=== PATIENT | male | born 1990 | race Caucasian/White ===

== ENCOUNTER 2017-08-19 05:29 | Inpatient (IN) | payer OTHER ==
[2017-08-19] MEDS: ONDANSETRON 4 MG INJ IV ×3 (06:28→21:07)
[2017-08-19] MEDS: HYDROmorphONE 1 MG/5 ML IV SYRINGE IV ×2 (06:29→07:15)
[2017-08-19] MEDS: SOD CHLORIDE 0.9% 1,000 ML IV ×3 (06:29→21:58)
[2017-08-19 06:40] LABS: ADD MAN DIFF? NO
[2017-08-19 06:46] LABS: BASOPHILS % 0.2 % (0.0-2.0); EOSINOPHILS # 0.1 10^3/ul (0.0-0.5); EOSINOPHILS % 0.5 % (0.0-7.0); HEMATOCRIT 42.9 % (42.0-52.0); HEMOGLOBIN 15.6 g/dl (14.0-18.0); LYMPHOCYTES # 1.5 10^3/ul (0.8-2.9); MEAN CORPUSCULAR HEMOGLOBIN 29.8 pg (29.0-33.0); MEAN CORPUSCULAR HGB CONC 36.4 g/dl (32.0-37.0); MEAN CORPUSCULAR VOLUME 81.9 fl (82.0-101.0); MEAN PLATELET VOLUME 9.8 fl (7.4-10.4); MONOCYTES % 7.4 % (0.0-11.0); NEUTROPHIL # 10.7 10^3/ul (1.6-7.5); NEUTROPHILS % 80.6 % (39.0-77.0); PLATELET COUNT 197 10^3/UL (140-415); RED BLOOD COUNT 5.24 10^6/ul (4.70-6.10); RED CELL DISTRIBUTION WIDTH 11.9 % (11.5-14.5)
[2017-08-19 06:46] LABS: WHITE BLOOD COUNT 13.3 10^3/ul (4.8-10.8)
[2017-08-19 06:47] LABS: ADD UMIC NO; UR ASCORBIC ACID NEGATIVE (NEGATIVE); UR BILIRUBIN (Dip) NEGATIVE (NEGATIVE); UR BLOOD (Dip) NEGATIVE (NEGATIVE); UR CLARITY CLEAR (CLEAR); UR COLOR YELLOW (YELLOW); UR GLUCOSE (Dip) NEGATIVE (NEGATIVE); UR KETONES (Dip) NEGATIVE (NEGATIVE); UR LEUKOCYTE ESTERASE (Dip) NEGATIVE Leu/ul (NEGATIVE); UR NITRITE (Dip) NEGATIVE (NEGATIVE); UR SPECIFIC GRAVITY (Dip) 1.023 (1.003-1.030); UR TOTAL PROTEIN (Dip) NEGATIVE (NEGATIVE); UR UROBILINOGEN (Dip) NEGATIVE (NEGATIVE)
[2017-08-19 07:03] LABS: ALANINE AMINOTRANSFERASE 25 IU/L (13-69); ALBUMIN 4.3 g/dl (3.3-4.9); ALBUMIN/GLOBULIN RATIO 1.38; ALKALINE PHOSPHATASE 56 IU/L (42-121); ANION GAP 16 (8-16); ASPARTATE AMINO TRANSFERASE 20 IU/L (15-46); BLOOD UREA NITROGEN 13 mg/dl (7-20); CARBON DIOXIDE 28 mmol/L (21-31); CHLORIDE 106 mmol/L (97-110); CREATININE 1.04 mg/dl (0.61-1.24); GLUCOSE 108 mg/dl (70-220); LIPASE 46 U/L (23-300); POTASSIUM 3.8 mmol/L (3.5-5.1); SODIUM 146 mmol/L (135-144); TOTAL PROTEIN 7.4 g/dl (6.1-8.1)
[2017-08-19 07:09] LABS: BILIRUBIN,INDIRECT 0.5 mg/dl (0-1.1); BILIRUBIN,TOTAL 0.5 mg/dl (0.2-1.3)
[2017-08-19] MEDS: AMPICILLIN/SULB 3 GM/NS (PMX) 100 ML IVPB (07:19)
[2017-08-19] MEDS ORDERED: ACETAMINOPHEN 325 MG TAB PO ×2 (08:30→09:30)
[2017-08-19] MEDS ORDERED: ONDANSETRON 4 MG INJ IV (08:30)
[2017-08-19] MEDS ORDERED: BISACODYL 10 MG SUPP PR (09:30)
[2017-08-19] MEDS ORDERED: DOCUSATE SODIUM 100 MG CAP PO (09:30)
[2017-08-19] MEDS ORDERED: MAGNESIUM HYDROXIDE 30ML CUP PO (09:30)
[2017-08-19] MEDS ORDERED: ACETAMINOPHEN 650 MG SUPP PR (09:30)
[2017-08-19] MEDS ORDERED: NACL 0.9% 3 ML SYG IV (09:30)
[2017-08-19] MEDS: morphine 2 MG INJ IV (09:38)
[2017-08-19] MEDS: AMPICILLIN/SULB 1.5GM/NS (PMX) 50 ML IVPB ×2 (11:55→18:00)
[2017-08-19 17:38] LABS: INR 0.99; PROTIME 13.2 Sec (11.9-14.9)
[2017-08-19] MEDS ORDERED: FENTAnyl 50 MCG/ML VIAL (19:33)
[2017-08-19] MEDS ORDERED: ROCURONIUM 50 MG INJ (19:33)
[2017-08-19] MEDS ORDERED: PROPOFOL 20 ML (19:33)
[2017-08-19] MEDS ORDERED: MIDAZOLAM 1 MG/ML 2 ML INJ (19:33)
[2017-08-19] MEDS ORDERED: ROPIVACAINE 0.5 % 30 ML VIAL (19:34)
[2017-08-19] MEDS ORDERED: AMPICILLIN/SULB 3 GM/NS (PMX) 100 ML IVPB (19:34)
[2017-08-19] MEDS ORDERED: ACETAMINOPHEN 1000MG/100ML IV 100 ML (20:25)
[2017-08-19] MEDS ORDERED: DEXAMETHASONE 4 MG/ML 1 ML INJ (20:25)
[2017-08-19] MEDS ORDERED: ONDANSETRON 4 MG INJ (20:25)
[2017-08-19] MEDS ORDERED: SUGAMMADEX SODIUM 200 MG/2 ML VIAL IV (20:26)
[2017-08-19] MEDS ORDERED: KETOROLAC 30 MG INJ (20:26)
[2017-08-19] MEDS: LIDOCAINE 1% (MPF) 30 ML INJ INJ (20:27)
[2017-08-19] MEDS: BUPIVACAINE 0.25%/EPI (SDV) 30 ML INJ (20:27)
[2017-08-19] MEDS ORDERED: FENTAnyl 50 MCG/ML VIAL IV ×3 (20:30)
[2017-08-19] MEDS ORDERED: EPHEDrine SULFATE 50 MG/5 ML SYG IV (20:30)
[2017-08-19] MEDS ORDERED: METOCLOPRAMIDE 10 MG INJ IV (20:30)
[2017-08-19] MEDS ORDERED: OXYCODONE/ACETAMINOPHEN (5/325) TAB PO ×2 (20:30)
[2017-08-19] MEDS ORDERED: DIPHENHYDRAMINE 50 MG INJ IV (20:30)
[2017-08-19] MEDS ORDERED: HYDROmorphONE (0.2 MG/ML) 10ML SYG IV ×2 (20:30)
[2017-08-19] MEDS ORDERED: MEPERIDINE 25 MG INJ (20:47)
[2017-08-19] MEDS: MEPERIDINE 25 MG INJ IV (20:51)
[2017-08-19] MEDS: HYDROmorphONE (0.2 MG/ML) 10ML SYG IV (21:08)
[2017-08-20] MEDS: HYDROCODONE/APAP (5/325) TAB PO ×3 (01:51→15:02)
[2017-08-20] MEDS: ONDANSETRON 4 MG INJ IV ×2 (04:47→13:11)
[2017-08-20] MEDS: AMPICILLIN/SULB 1.5GM/NS (PMX) 50 ML IVPB ×3 (05:35→11:42)
[2017-08-20] MEDS: PANTOPRAZOLE 40 MG INJ IV (05:35)
[2017-08-20] MEDS: morphine 2 MG INJ IV ×3 (05:47→10:20)
[2017-08-20 05:49] LABS: ADD MAN DIFF? NO
[2017-08-20 06:03] LABS: ABNORMAL IP MESSAGE 1; BASOPHILS % 0.1 % (0.0-2.0); HEMATOCRIT 39.2 % (42.0-52.0); HEMOGLOBIN 13.9 g/dl (14.0-18.0); LYMPHOCYTES # 0.6 10^3/ul (0.8-2.9); LYMPHOCYTES % 7.1 % (15.0-51.0); MEAN CORPUSCULAR HGB CONC 35.5 g/dl (32.0-37.0); MEAN CORPUSCULAR VOLUME 84.5 fl (82.0-101.0); MEAN PLATELET VOLUME 10.4 fl (7.4-10.4); MONOCYTE # 0.3 10^3/ul (0.3-0.9); MONOCYTES % 3.5 % (0.0-11.0); NEUTROPHIL # 7.4 10^3/ul (1.6-7.5); NEUTROPHILS % 89.1 % (39.0-77.0); PLATELET COUNT 186 10^3/UL (140-415); POSITIVE DIFF @See below; RED BLOOD COUNT 4.64 10^6/ul (4.70-6.10); RED CELL DISTRIBUTION WIDTH 11.7 % (11.5-14.5)
[2017-08-20 06:03] LABS: WHITE BLOOD COUNT 8.3 10^3/ul (4.8-10.8)
[2017-08-20 06:23] LABS: ALANINE AMINOTRANSFERASE 23 IU/L (13-69); ALBUMIN 3.5 g/dl (3.3-4.9); ALBUMIN/GLOBULIN RATIO 1.25; ALKALINE PHOSPHATASE 41 IU/L (42-121); ANION GAP 13 (8-16); ASPARTATE AMINO TRANSFERASE 15 IU/L (15-46); BILIRUBIN,INDIRECT 0.5 mg/dl (0-1.1); BILIRUBIN,TOTAL 0.5 mg/dl (0.2-1.3); BLOOD UREA NITROGEN 8 mg/dl (7-20); CALCIUM 8.9 mg/dl (8.4-10.2); CARBON DIOXIDE 28 mmol/L (21-31); CHLORIDE 108 mmol/L (97-110); CHOL/HDL RATIO 3.3 RATIO; CHOLESTEROL 120 mg/dl (100-200); CREATININE 0.98 mg/dl (0.61-1.24); GLUCOSE 126 mg/dl (70-220); HDL CHOLESTEROL 36 mg/dl (28-63); LDL CHOLESTEROL,CALCULATED 75 mg/dl; MAGNESIUM 1.9 mg/dl (1.7-2.5); POTASSIUM 4.6 mmol/L (3.5-5.1); SODIUM 144 mmol/L (135-144); TOTAL PROTEIN 6.3 g/dl (6.1-8.1); TRIGLYCERIDES 47 mg/dl (0-149)
[2017-08-20 06:29] LABS: HEMOGLOBIN A1C 4.7 % (0-5.9)
[2017-08-20 06:33] LABS: FREE THYROXINE INDEX (Calc) 2.83 ug/ml (0.65-3.89); T3 UPTAKE 38.3 % (23.5-40.5); T4 (THYROXINE) 7.4 ug/dl (5.5-11.0)
[2017-08-20 06:47] LABS: THYROID STIMULATING HORMONE 0.653 MIU/L (0.465-4.680)
[2017-08-20] MEDS: SOD CHLORIDE 0.9% 1,000 ML IV (10:20)
[2017-08-20] MEDS: AMOXICILLIN/CLAV 875 MG TAB PO (15:02)
== END 2017-08-20 15:10 | disposition home or self-care (01) | DRG 343 ==
LOC: FTE 05:29 → MS1 08:13
PROC: 0DTJ4ZZ Resection of Appendix, Percutaneous Endoscopic Approach (ICD-10-PCS; principal; 2017-08-19 19:00)
DX: K35.80 Unspecified acute appendicitis (principal); K40.20 Bilateral inguinal hernia, without obstruction or gangrene, not specified as recurrent
CPT/HCPCS: 36415; 74176; 80053; 80061; 81003; 83036; 83690; 83735; 84100; 84436; 84443; 84479; 85025; 85610; 96374; 96375; 96376; 99285-25